=== PATIENT | female | born 1970 | race African-American/Black ===

== ENCOUNTER 2017-09-24 08:41 | Emergency (ER) | payer MEDICAID ==
[~2017-09-24] VITALS: Ht 165.1 cm; Wt 50.0 kg
[~2017-09-24 08:41] MED LIST: MIRT15TA6
[2017-09-24] MEDS: DICYCLOMINE 10 MG/5 ML ORAL SYR PO STA (12:45)
[2017-09-24] MEDS: ONDANSETRON 4MG ODT PO STA (12:45)
[2017-09-24] MEDS: SODIUM CHLORIDE 0.9% 500 ML IV ONE (12:56)
[2017-09-24] MEDS: ONDANSETRON HCL 4MG/2ML VIAL IV STA (12:56)
[2017-09-24 14:04] VITALS: BP 168/86
[2017-09-24] MEDS: KETOROLAC 30MG/ML VIAL IV STA (14:04)
== END 2017-09-24 15:40 | disposition home or self-care (01) ==
LOC: ER 09:10
DX: R10.13 Epigastric pain (principal); R19.7 Diarrhea, unspecified; R11.10 Vomiting, unspecified; F17.200 Nicotine dependence, unspecified, uncomplicated; F12.10 Cannabis abuse, uncomplicated
CPT/HCPCS: 96361; 96374; 96375; 99285; J1885; J2405; J7030; Q0162

== ENCOUNTER 2020-07-27 08:15 | Emergency (ER) | payer MEDICAID, OTHER ==
[~2020-07-27] VITALS: Ht 165.1 cm; Wt 49.0 kg
[2020-07-27] MEDS ORDERED: CEPHALEXIN 250MG CAPSULE PO ONE (08:45)
[2020-07-27] MEDS ORDERED: IBUPROFEN 400MG TABLET PO ONE (08:45)
[2020-07-27 09:04] VITALS: BP 145/76
== END 2020-07-27 09:10 | disposition home or self-care (01) ==
LOC: ER 08:15
DX: L03.114 Cellulitis of left upper limb (principal); F12.10 Cannabis abuse, uncomplicated
CPT/HCPCS: 99283

== ENCOUNTER 2022-05-27 08:25 | Emergency (ER) | payer MEDICAID, OTHER ==
[~2022-05-27] VITALS: Ht 162.6 cm; Wt 49.0 kg
[~2022-05-27 08:25] MED LIST changes: +MIRT-89; -MIRT15TA6
[2022-05-27 08:30] VITALS: BP 135/101
[2022-05-27] MEDS ORDERED: TC025C15 TP (08:50)
[2022-05-27] MEDS ORDERED: CLAR10 MT (08:50)
[2022-05-27] MEDS ORDERED: LORATADINE 10MG TABLET PO SCH (09:00)
[2022-05-27] MEDS ORDERED: DEXAMETHASONE 4MG TABLET PO ONE (09:00)
== END 2022-05-27 10:14 | disposition home or self-care (01) ==
LOC: ER 08:25
DX: T63.481A Toxic effect of venom of other arthropod, accidental (unintentional), initial encounter (principal); L29.9 Pruritus, unspecified; R23.8 Other skin changes; Y93.H9 Activity, other involving exterior property and land maintenance, building and construction; Y92.015 Private garage of single-family (private) house as the place of occurrence of the external cause
CPT/HCPCS: 99283; J8540

== ENCOUNTER 2024-09-23 14:11 | Emergency (ER) | payer OTHER ==
[~2024-09-23] VITALS: Ht 167.6 cm; Wt 50.8 kg
[~2024-09-23 14:11] MED LIST changes: +CLAR10 MT; +LIP40 PO; +TC025C15 TP
[2024-09-23 14:14] VITALS: BP 146/82; PULSE 82; RESP 16; TEMP 98.2; O2SAT 100; O2SAT 98
[2024-09-23 14:55] LABS: BASOPHILS % 0.2 % (0.0-2.0); EOSINOPHILS % 1.1 % (0.0-5.0); HEMATOCRIT. 38.5 % (36.0-48.0); HEMOGLOBIN. 12.7 g/dL (12.0-16.0); LYMPHOCYTES % 23.8 % (20.0-50.0); MEAN CORPUSCULAR HEMOGLOBIN 31.1 pg (28.0-32.0); MEAN PLATELET VOLUME 6.8 fl (7.4-10.4); MONOCYTES % 7.4 % (2.0-8.0); NEUTROPHILS % 67.5 % (40.0-76.0); PLATELET 374 x1000/uL (130-400); RED BLOOD CELL COUNT 4.09 mill/uL (4.2-5.4); RED CELL DISTRIBUTION WIDTH 13.7 % (11.6-14.6); WHITE BLOOD COUNT 11.4 x1000/uL (4.5-11.0)
[2024-09-23 15:01] LABS: CHLORIDE 109 mEq/L (98-107); SODIUM 145 mEq/L (136-145)
[2024-09-23 15:02] LABS: CALCIUM 9.8 mg/dL (8.7-10.4); CARBON DIOXIDE 29 mEq/L (21-32)
[2024-09-23 15:07] LABS: CREATININE 1.1 mg/dL (0.6-1.0); GLUCOSE 96 mg/dL (70-105); UREA NITROGEN BLOOD 11 mg/dL (9-23)
[2024-09-23 15:08] LABS: TROPONIN I HIGH SENSITIVITY < 4 ng/L (3.0-34)
[2024-09-23] MEDS ORDERED: IBUP-2029 MT (16:54)
== END 2024-09-23 17:29 | disposition home or self-care (01) ==
LOC: ER 14:16
DX: R09.1 Pleurisy (principal); F12.90 Cannabis use, unspecified, uncomplicated; Z79.899 Other long term (current) drug therapy
CPT/HCPCS: 36415; 71045; 80048; 84484; 85025; 93005; 99285